=== PATIENT | female | born 1970 | race Caucasian/White ===

== ENCOUNTER 2018-10-24 10:56 | Emergency (ER) | payer SELFPAY ==
[~2018-10-24] VITALS: Ht 165.1 cm; Wt 68.0 kg
[2018-10-24 13:30] VITALS: BP 128/78
== END 2018-10-24 15:29 | disposition home or self-care (01) ==
LOC: EDBD 10:56 → ER 11:07
DX: M25.562 Pain in left knee (principal); M79.674 Pain in right toe(s); K21.9 Gastro-esophageal reflux disease without esophagitis; Z88.1 Allergy status to other antibiotic agents; V49.19XA Passenger injured in collision with other motor vehicles in nontraffic accident, initial encounter; Y93.89 Activity, other specified; Y99.8 Other external cause status; Y92.410 Unspecified street and highway as the place of occurrence of the external cause
CPT/HCPCS: 73562; 73630